=== PATIENT | female | born 1955 | race Caucasian/White ===

== ENCOUNTER 2017-03-21 09:07 | Emergency (ER) | payer OTHER ==
[~2017-03-21] VITALS: Ht 170.2 cm; Wt 67.7 kg
[~2017-03-21 09:07] MED LIST: Ecotrin PO; LEVOTHROID,S0.112 MG PO; LOVAZA1 GM; LOVAZA1 GM PO; PROVENTIL,200 INHALA IH; SIMVASTATIN80 MG PO; SPIRIVA1 INHALATI IH; SYNTHROID75 MCG PO; ULTRAM50 MG PO; ZESTRIL,PRINIVI10 MG PO; ZESTRIL2.5 MG PO; ZOCOR40 MG PO; predniSONE PO
[2017-03-21 10:25] LABS: HEMATOCRIT 38.3 % (36.0-46.0); HEMOGLOBIN 13.2 G/DL (11.9-15.5); MCH 31.3 PG (29.0-34.0); MCHC 34.5 G/DL (30.0-36.0); MCV 90.8 FL (83-99); PLATELET COUNT 144 K/uL (156-360); RBC DIS.WIDTH-CV 12.7 % (11.8-14.6); RBC DIS.WIDTH-SD 42.5 % (39-53); RED BLOOD COUNT 4.22 M/uL (3.80-5.20); WHITE BLOOD COUNT 7.7 K/uL (4.1-10.2)
[2017-03-21 10:38] LABS: CHLORIDE 101 mEq/L (99-109); POTASSIUM 3.2 mEq/L (3.7-5.4); SODIUM 133 mEq/L (136-147)
[2017-03-21 10:40] LABS: GLUCOSE 133 mg/dL (70-99)
[2017-03-21 10:44] LABS: CREATININE 0.8 mg/dL (0.6-1.3); GFR ESTIMATE (CALCULATED) > 59 mL/min/
[2017-03-21 10:45] LABS: UREA NITROGEN (BUN) 7 mg/dL (9-23)
[2017-03-21] MEDS ORDERED: TAMIFLU75 MG PO (12:25)
[2017-03-21] MEDS ORDERED: PHENERGAN-CODE120 ML PO (12:25)
[2017-03-21 12:42] VITALS: BP 119/66
== END 2017-03-21 12:42 | disposition home or self-care (01) ==
LOC: EME 09:07
DX: J10.1 Influenza due to other identified influenza virus with other respiratory manifestations (principal); R51 Headache; R00.0 Tachycardia, unspecified; J44.9 Chronic obstructive pulmonary disease, unspecified; I10 Essential (primary) hypertension; E78.5 Hyperlipidemia, unspecified; Z79.82 Long term (current) use of aspirin; Z79.52 Long term (current) use of systemic steroids; F17.200 Nicotine dependence, unspecified, uncomplicated
CPT/HCPCS: 71020; 80048; 85027; 99281; 99285; J1885; J7030

== ENCOUNTER 2017-07-16 06:23 | Inpatient (IN) | payer OTHER ==
[~2017-07-16] VITALS: Ht 154.9 cm; Wt 65.0 kg
[~2017-07-16 06:23] MED LIST changes: -LEVOTHROID,S0.112 MG PO; +PHENERGAN-CODE120 ML PO; -PROVENTIL,200 INHALA IH; +SYNTHROID112 MCG PO; +TAMIFLU75 MG PO; +VENTOLIN HFA18 GM IH
[2017-07-16 07:43] LABS: BASOPHIL (%) 0.4 % (0-1); BASOPHIL COUNT 0.1 K/uL (0-0.1); EOSINOPHIL (%) 0.4 % (0-5); EOSINOPHIL COUNT 0.1 K/uL (0-0.3); HEMOGLOBIN 14.2 G/DL (11.9-15.5); IMMATURE GRANULOCYTE (%) 0.4 % (0.0-0.7); LYMPHOCYTE (%) 12.7 % (15-42); LYMPHOCYTE COUNT 1.5 K/uL (1.0-2.8); MCHC 33.8 G/DL (30.0-36.0); MCV 91.7 FL (83-99); MONOCYTE (%) 5.5 % (3-12); MONOCYTE COUNT 0.7 K/uL (0-0.8); NEUTROPHIL (%) 80.6 % (45-76); NEUTROPHIL COUNT 9.8 K/uL (1.8-6.4); PLATELET COUNT 220 K/uL (156-360); RBC DIS.WIDTH-CV 13.1 % (11.8-14.6); RBC DIS.WIDTH-SD 43.9 % (39-53); RED BLOOD COUNT 4.58 M/uL (3.80-5.20); WHITE BLOOD COUNT 12.1 K/uL (4.1-10.2)
[2017-07-16 07:54] LABS: BASE EXCESS -2.3 mEq/L (-3 to +3); BICARBONATE 24.2 mEq/L (22-26); CARBOXY HGB 3.7 % (0-5); COMMENTS - BLOOD GASES A+C+; METHEMOGLOBIN 1.1 % (0-1.5); PCO2 47 mm Hg (35-45); PO2 152 mm Hg (80-100); SITE RR; pH 7.32 (7.35-7.45)
[2017-07-16 07:55] LABS: DEVICE FM; O2 FLOW 8 L/MIN
[2017-07-16 08:10] LABS: TROP-I INTERPRETATION NEGATIVE; TROPONIN-I < 0.01 ng/mL (0.0-0.30)
[2017-07-16 08:23] LABS: CHLORIDE 105 MEQ/L (99-109); CREATININE 0.6 MG/DL (0.6-1.3); GFR ESTIMATE (CALCULATED) > 59 mL/min/; GLUCOSE 160 mg/dL (70-99); POTASSIUM 3.9 MEQ/L (3.7-5.4); SODIUM 137 MEQ/L (136-147); UREA NITROGEN (BUN) 15 mg/dL (9-23)
[2017-07-16] MEDS ORDERED: LO-DOSE ASPIRIN81 M1 PO (08:49)
[2017-07-16] MEDS ORDERED: NEURONTIN300 MG PO (08:50)
[2017-07-16] MEDS ORDERED: OMEPRAZOLE40 M1 PO (08:50)
[2017-07-16] MEDS ORDERED: ASCORBIC ACID500 M3 PO (08:51)
[2017-07-16] MEDS ORDERED: SYMBICORT60 INHALAT IH (08:51)
[2017-07-16] MEDS ORDERED: COZAAR50 MG PO (08:51)
[2017-07-16] MEDS ORDERED: CENTRUM SILVER1 EAC4 PO (08:51)
[2017-07-16] MEDS ORDERED: ADVIL200 MG PO (08:52)
[2017-07-16] MEDS ORDERED: ADVIL COLD &1 TABLET PO (08:53)
[2017-07-16] MEDS ORDERED: ROBITUSSIN100 MG/5 M PO (08:54)
[2017-07-16 13:47] VITALS: BP 139/80
[2017-07-16 16:25] VITALS: BP 123/68
[2017-07-16 20:02] VITALS: BP 140/69
[2017-07-16 23:56] VITALS: BP 128/61
[2017-07-17 03:59] VITALS: BP 162/83
[2017-07-17 06:43] LABS: HEMATOCRIT 39.4 % (36.0-46.0); MCH 30.7 PG (29.0-34.0); MCV 93.1 FL (83-99); PLATELET COUNT 224 K/uL (156-360); RBC DIS.WIDTH-CV 13.4 % (11.8-14.6); RBC DIS.WIDTH-SD 45.9 % (39-53); RED BLOOD COUNT 4.23 M/uL (3.80-5.20); WHITE BLOOD COUNT 14.4 K/uL (4.1-10.2)
[2017-07-17 07:07] LABS: CHLORIDE 108 MEQ/L (99-109); CREATININE 0.6 MG/DL (0.6-1.3); GFR ESTIMATE (CALCULATED) > 59 mL/min/; GLUCOSE 158 mg/dL (70-99); POTASSIUM 4.1 MEQ/L (3.7-5.4); SODIUM 141 MEQ/L (136-147); UREA NITROGEN (BUN) 14 mg/dL (9-23)
[2017-07-17 07:15] VITALS: BP 129/67
[2017-07-17 10:51] VITALS: BP 126/70
[2017-07-17 15:08] VITALS: BP 168/73
[2017-07-17 23:44] VITALS: BP 129/72
[2017-07-18 07:17] VITALS: BP 121/64
[2017-07-18 15:56] VITALS: BP 104/62
[2017-07-18 22:36] VITALS: BP 139/65
[2017-07-19 06:30] LABS: BASOPHIL (%) 0.3 % (0-1); EOSINOPHIL (%) 0 % (0-5); HEMATOCRIT 42.6 % (36.0-46.0); HEMOGLOBIN 13.9 G/DL (11.9-15.5); IMMATURE GRANULOCYTE (%) 1.3 % (0.0-0.7); LYMPHOCYTE (%) 7.8 % (15-42); LYMPHOCYTE COUNT 1.2 K/uL (1.0-2.8); MCH 30.2 PG (29.0-34.0); MCHC 32.6 G/DL (30.0-36.0); MCV 92.6 FL (83-99); MONOCYTE (%) 3.6 % (3-12); MONOCYTE COUNT 0.6 K/uL (0-0.8); NEUTROPHIL COUNT 13.5 K/uL (1.8-6.4); PLATELET COUNT 260 K/uL (156-360); RBC DIS.WIDTH-CV 13.6 % (11.8-14.6); RBC DIS.WIDTH-SD 46.5 % (39-53); WHITE BLOOD COUNT 15.5 K/uL (4.1-10.2)
[2017-07-19 07:07] LABS: CHLORIDE 104 MEQ/L (99-109); CREATININE 0.6 MG/DL (0.6-1.3); GFR ESTIMATE (CALCULATED) > 59 mL/min/; GLUCOSE 123 mg/dL (70-99); POTASSIUM 4.4 MEQ/L (3.7-5.4); SODIUM 140 MEQ/L (136-147); UREA NITROGEN (BUN) 18 mg/dL (9-23)
[2017-07-19 07:42] VITALS: BP 167/90
[2017-07-19 11:38] VITALS: BP 147/81
[2017-07-19 15:00] VITALS: BP 169/85
[2017-07-19 19:25] VITALS: BP 141/85
[2017-07-19 23:48] VITALS: BP 156/82
[2017-07-20 03:10] VITALS: BP 127/77
[2017-07-20 07:34] VITALS: BP 144/79
[2017-07-20 09:41] LABS: BASE EXCESS 1.3 mEq/L (-3 to +3); BICARBONATE 25.9 mEq/L (22-26); CARBOXY HGB 1.7 % (0-5); METHEMOGLOBIN 1.4 % (0-1.5)
[2017-07-20 09:42] LABS: COMMENTS - BLOOD GASES A+C+; PCO2 40 mm Hg (35-45); PO2 48 mm Hg (80-100); SITE LR; TOTAL RESP RATE 16 resp/min; pH 7.42 (7.35-7.45)
[2017-07-20 15:09] VITALS: BP 150/91; BP 189/96
[2017-07-20 18:45] VITALS: BP 143/77
[2017-07-20] MEDS ORDERED: NICOTINE PATCH1 EAC2 TD (22:16)
[2017-07-20] MEDS ORDERED: DUONEB 2.5-0.5 M3 ML AEROSOL (22:16)
[2017-07-20] MEDS ORDERED: SPIRIVA RESPIMAT4 GM IH (22:16)
[2017-07-20] MEDS ORDERED: LOSARTAN POTAS100 MG PO (22:17)
[2017-07-20] MEDS ORDERED: Ocean Nasal 0.65% BOTH NARES (22:18)
[2017-07-20] MEDS ORDERED: TYLENOL REGULA325 MG PO (22:18)
[2017-07-20] MEDS ORDERED: PREDNISONE10 M1 PO (22:19)
[2017-07-20 23:05] VITALS: BP 146/80
[2017-07-21 07:47] VITALS: BP 140/73
== END 2017-07-21 14:42 | disposition home health service (06) | DRG 192 ==
LOC: EME 06:23 → EDOF 10:22 → 2EAST 10:22 → ENRESERV 10:37 → EDOF 11:07 → ENRESERV 11:36 → 2EAST 13:37
PROVIDERS: Emergency Medicine; Family Medicine Sports Medicine; Internal Medicine Pulmonary Disease
DX: J44.1 Chronic obstructive pulmonary disease with (acute) exacerbation (principal); J44.0 Chronic obstructive pulmonary disease with (acute) lower respiratory infection; J20.9 Acute bronchitis, unspecified; R09.02 Hypoxemia; E03.9 Hypothyroidism, unspecified; R00.0 Tachycardia, unspecified; E78.5 Hyperlipidemia, unspecified; F17.210 Nicotine dependence, cigarettes, uncomplicated; I10 Essential (primary) hypertension; I25.10 Atherosclerotic heart disease of native coronary artery without angina pectoris; F41.9 Anxiety disorder, unspecified; J30.9 Allergic rhinitis, unspecified; Z86.73 Personal history of transient ischemic attack (TIA), and cerebral infarction without residual deficits; Z79.51 Long term (current) use of inhaled steroids; Z79.82 Long term (current) use of aspirin; Z90.710 Acquired absence of both cervix and uterus; Z99.81 Dependence on supplemental oxygen; Z88.2 Allergy status to sulfonamides; Z88.6 Allergy status to analgesic agent
CPT/HCPCS: 36600; 71045; 71275; 80048; 82803; 84484; 85025; 85027; 87502; 93005; 94640; 94640 76; 94644; 94760; 94799; 99202; 99281; 99285; J1650; J1956; J2920; J2930; J7040; J7512